=== PATIENT | female | born 1975 | race African-American/Black ===

== ENCOUNTER 2022-11-29 04:22 | Day surgery (SDC) | payer OTHER ==
[2022-11-27 15:03] VITALS: BMI 27.8
[2022-11-29 09:02] VITALS: TEMP 97.7
[2022-11-29 10:15] VITALS: BP 108/59; PULSE 76; RESP 16
== END 2022-11-29 09:37 | disposition home or self-care (01) ==
LOC: JASU-ENDO 04:22
PROVIDERS: ATTEND Internal Medicine Gastroenterology
PROC: 0DJD8ZZ Inspection of Lower Intestinal Tract, Via Natural or Artificial Opening Endoscopic (ICD-10-PCS; principal; 2022-11-29 08:30)
DX: Z12.11 Encounter for screening for malignant neoplasm of colon (principal)
CPT/HCPCS: 81025

== ENCOUNTER 2023-08-16 07:57 | Day surgery (SDC) | payer OTHER ==
[~2023-08-16 07:57] MED LIST: FERRIC CARBOXYMALTOSE 750 MG in SODIUM CHLORIDE 250 ML IVPB ONE
[2023-08-16] MEDS ORDERED: FERRIC CARBOXYMALTOSE 750 MG in SODIUM CHLORIDE 250 ML IVPB ONE (09:00)
[2023-08-16 14:59] VITALS: BP 116/62; PULSE 67; RESP 20; TEMP 97.9
== END 2023-08-16 10:50 | disposition home or self-care (01) ==
LOC: JONCNONCHE 07:57 → J7W 08:00 → JONCNONCHE 10:50
PROVIDERS: ATTEND Internal Medicine Hematology & Oncology
PROC: 3E033GC Introduction of Other Therapeutic Substance into Peripheral Vein, Percutaneous Approach (ICD-10-PCS; principal; 2023-08-16)
DX: D50.9 Iron deficiency anemia, unspecified (principal)
CPT/HCPCS: 96365; J1439